=== PATIENT | male | born 1935 | race Caucasian/White ===

== ENCOUNTER 2020-08-08 07:34 | Day surgery (SDC) | payer OTHER ==
[2020-08-05 17:07] LABS: Albumin 3.6 g/dL (3.4-5.0); Bilirubin Total 0.4 mg/dL (0.2-1.0); Potassium 4.4 mmol/L (3.5-5.1)
[2020-08-08] MEDS ORDERED: Ringers Lactate 1,000 ML IV ONE (08:06)
[2020-08-08] MEDS ORDERED: CEFAZOLIN/SWI 1gm 1 GM/10 ML SYR ONE (08:06)
[2020-08-08] MEDS ORDERED: LIDOCAINE 1% W/EPI 1:100,000 MDV 20 ML VIAL ONE (09:42)
[2020-08-08] MEDS ORDERED: BUPIVACA 0.5%/EPI 0.0005%/PF 30 ML VIAL ONE (09:43)
[2020-08-08] MEDS ORDERED: propofoL 200 MG/20 ML VIAL IV ONE (10:04)
[2020-08-08] MEDS ORDERED: FENTANYL CITR 100 MCG/2 ML ONE (10:05)
[2020-08-08] MEDS ORDERED: LIDOCAINE 2% MPF 5 ML VIAL ONE (10:05)
[2020-08-08] MEDS ORDERED: ONDANSETRON 4 MG/2 ML VIAL ONE (10:05)
--- NOTE | 2020-08-08 11:52 | P.BOP ---
Preoperative diagnosis: neoplasm uncertain behavior Postoperative diagnosis: BCC nose Primary procedure: WLE Secondary procedure: Allograft with Theraskin Draw In Hand: NONE,NONE Estimated blood loss: 5ml Specimen: nose, suture 12 oclock, frozen section with negative margins Findings: 3.0 x 2.5 cm defect include partial resection of right lower lateral cart. Anesthesia: General Complications: None Implants: none Fluids & blood products: crystalloid 800ml Transferred to: Recovery Room Condition: Good
[2020-08-08 12:31] VITALS: TEMP 97.6
[2020-08-08 13:03] VITALS: BP 140/85; O2SAT 95
--- NOTE | 2020-08-08 13:11 | OP ---
Date of Procedure: 08/08/2020 Surgeon: Sissy Contreras MD Preoperative Diagnosis: Neoplasm of the skin of the nose of uncertain behavior. Postoperative Diagnosis: Basal cell carcinoma. Procedures Performed: Wide local excision with frozen section, nose, defect 3.0 x 2.5 cm and application of allograft to the surgical defect. Indication For Procedure: Mr. Steele presented to the [facility] with a large ulcerated mass on the skin of the tip of the nose which was clinically suspicious for a basal versus squamous cell carcinoma. He had a history of multiple prior skin cancers of other parts of the face, previously treated by [facility]. Due to the appearance, location, and size of the lesion, I recommended procedure in the operating room. Procedure In Detail: The patient was brought to the operating room. He was placed under general anesthesia via oral LMA. The skin of the nose was cleaned using alcohol and injected with about 4 mL of 0.5% Marcaine with epinephrine. The face was then prepped with Betadine and draped in the standard sterile fashion. A gross 5 to 7 mm margin was drawn around the tumor, which had significant ulceration in the central portion. The Bovie electrocautery was used to cut along the designed incision, full-thickness through the skin, which was noted to be thickened with hypertrophic sebaceous glands and mild appearance of rhinophyma. The Bovie electrocautery was used to elevate between the deep subcutaneous tissues and the lower lateral cartilage. A suture was placed at the central superior most aspect to indicate 12 o'clock. While elevating the tissue in the 7 to 8 o'clock region, the skin was very firm without a clear tissue plane between the skin and deeper tissue layers. A portion of the lower lateral cartilage was taken as part of the deep margin and during further dissection, a 2 x 3 mm area of vestibular skin was also removed creating a small through and through defect into the right nasal vestibule. The specimen was further elevation from the underlying perichondrium and divided from the remaining soft tissue attachments and sent to pathology for frozen section analysis. Bleeding was controlled using Bovie electrocautery for small and moderate-sized vessels. The frozen section confirmed the mass to be a basal cell carcinoma with negative peripheral and deep margins. Of note, the tumor did approximate and approached the superficial aspect of the cartilaginous layer confirming the necessity of this resection. Once the margins were returned as negative, the surgical wound was examined. The total defect was 3.0 x 2.5 cm. A 5-0 chromic suture was used to close the vestibular skin with 2 interrupted buried sutures with the knot within the soft tissues of the nose. The TheraSkin allograft was then thaw and prepared according to advanced practice rn specifications and trimmed to the appropriate size and laid over the defect. It was secured in a 6-point fashion using 2-0 silk sutures. A Xeroform bolster was then applied and the ties were used to secure the bolster to the defect. Overall bleeding was minimal. Once the procedure was concluded, the patient was a returned to care of anesthesia for awakening and extubation in the operating room which proceeded without difficulty. Complications: None. Disposition: The patient will return to the recovery room and be discharged in the care of family later today. The patient will follow up with Dr. Contreras's office in about 10 days for removal of the bolster and evaluation for healing. JASON/CORRINA Voice ID: [id number] Report ID: [id number]
== END 2020-08-08 13:15 | disposition home health service (06) ==
LOC: OR 07:34
PROVIDERS: ATTEND Otolaryngology
PROC: 0JX10ZC Transfer Face Subcutaneous Tissue and Fascia with Skin, Subcutaneous Tissue and Fascia, Open Approach (ICD-10-PCS; 2020-08-08)
PROC: 0JB10ZZ Excision of Face Subcutaneous Tissue and Fascia, Open Approach (ICD-10-PCS; 2020-08-08)
PROC: 0JB10ZX Excision of Face Subcutaneous Tissue and Fascia, Open Approach, Diagnostic (ICD-10-PCS; principal; 2020-08-08 09:30)
DX: C44.311 Basal cell carcinoma of skin of nose (principal); I10 Essential (primary) hypertension; K21.9 Gastro-esophageal reflux disease without esophagitis
CPT/HCPCS: 36415; 88331; 88332; 88305; 80053; 11106; 11643; 15275; U0003; J2704; J3010; J0690; J7120; J2405